=== PATIENT | male | born 1945 | race African-American/Black ===

== ENCOUNTER → 2017-08-31 | Outpatient (CLI) | payer MEDICARE, OTHER ==
[~2017-08-31] MED LIST: ASPIRIN 32325 MG/TA1 PO; CARDURA 2MG2 MG PO; CIPRO 500MG TA500 MG PO; CORDARONE200 MG/TAB PO; DILAUDID 2MG TAB2 MG PO; FLAGYL500 MG PO; HCTZ 25MG TAB25 MG PO; LEVAQUIN 5500 MG/TA1 PO; NORCO 325 MG-51 TAB PO; PERCOCET 325 MG1 TA2 PO; PLAVIX 75MG TAB75 MG PO; TOPROL XL 25MG25 MG PO; TYLENOL 500MG500 MG PO; ZOFRAN 4MG T4 MG/TAB PO; ZOFRAN INJ4 MG/2 ML PO
== END ==
LOC: COL.RAD 07:18
DX: I71.4 Abdominal aortic aneurysm, without rupture (principal); K42.9 Umbilical hernia without obstruction or gangrene
CPT/HCPCS: Q9967

== ENCOUNTER 2018-01-19 07:30 | Day surgery (SDC) | payer MEDICARE, OTHER ==
[~2018-01-19] VITALS: Ht 182.9 cm; Wt 94.0 kg
[2018-01-19] MEDS ORDERED: PACERONE200 MG PO (07:52)
[2018-01-19 07:54] VITALS: BP 121/71; PULSE 53; TEMP 98.5
[2018-01-19 10:55] VITALS: BP 133/77; PULSE 55; TEMP 98.4
[2018-01-19] MEDS ORDERED: NORCO 325 MG-51 TAB PO (11:05)
[2018-01-19 11:10] VITALS: BP 135/79; PULSE 49
[2018-01-19 11:25] VITALS: BP 140/67; PULSE 54
== END 2018-01-19 11:55 | disposition home or self-care (01) ==
LOC: SDCO 07:30
DX: C10.9 Malignant neoplasm of oropharynx, unspecified (principal); I10 Essential (primary) hypertension; E86.0 Dehydration; I48.91 Unspecified atrial fibrillation; Z86.73 Personal history of transient ischemic attack (TIA), and cerebral infarction without residual deficits; Z79.82 Long term (current) use of aspirin; Z87.891 Personal history of nicotine dependence
CPT/HCPCS: C1788; J0690; J1644; J2250; J2704; J3010; J7120

== ENCOUNTER → 2018-02-18 | Outpatient (CLI) | payer MEDICARE, OTHER ==
[~2018-02-18] MED LIST changes: +PACERONE200 MG PO
== END ==
LOC: COL.RAD 08:01
DX: I71.4 Abdominal aortic aneurysm, without rupture (principal); K43.9 Ventral hernia without obstruction or gangrene
CPT/HCPCS: Q9967

== ENCOUNTER → 2018-08-03 | Outpatient (CLI) | payer MEDICARE, OTHER | LOC: COL.RAD 08:27 | DX: I71.4 Abdominal aortic aneurysm, without rupture (principal); K42.9 Umbilical hernia without obstruction or gangrene; N40.0 Benign prostatic hyperplasia without lower urinary tract symptoms | CPT/HCPCS: Q9967 ==

== ENCOUNTER 2019-01-29 17:57 | Observation (INO) | payer MEDICARE, OTHER ==
[~2019-01-29] VITALS: Ht 182.9 cm; Wt 88.8 kg
[2019-01-29 18:43] LABS: COLLECTION METHOD CLEAN CATCH
[2019-01-29 18:46] LABS: BASO % 0.4 % (0.0-2.0); EOS # 0.1 (0.0-0.7); EOS % 0.9 % (0-4.0); GRAN # 6.5 (1.4-6.5); GRAN % 84.7 % (42.2-75.2); HEMATOCRIT 38.7 % (42.0-52.0); HEMOGLOBIN 12.5 g/dl (13.5-18.0); LYMPH # 0.7 (1.2-3.4); LYMPH % 9.2 % (20.0-51.0); MEAN CELL VOLUME 82 fl (80.0-100.0); MEAN CORPUSCULAR HEMOGLOBIN 26 pg (27.0-31.0); MEAN CORPUSCULAR HGB CONC 32 g/dl (33.0-37.0); MEAN PLATELET VOLUME 10.7 fl (7.4-10.4); MONO # 0.3 (0.1-0.6); MONO % 4.4 % (1.7-9.3); PLATELET COUNT 201 K/mm3 (130-400); RED BLOOD COUNT 4.75 M/mm3 (4.20-5.60); REDCELL DISTRIBUTION WIDTH-CV 17.2 % (11.5-14.5)
[2019-01-29 18:52] LABS: MUCOUS Present /lpf; PH 7 (5-8); SQUAMOUS EPITHELIAL 0-2 /hpf; URINE APPEARANCE Clear; URINE BACTERIA None Seen /hpf; URINE BILIRUBIN Negative (NEGATIVE); URINE BLOOD Negative (NEGATIVE); URINE COLOR Yellow; URINE GLUCOSE Negative (NEGATIVE); URINE KETONE Negative (NEGATIVE); URINE LEUKOCYTE ESTERASE Negative (NEGATIVE); URINE NITRATE Negative (NEGATIVE); URINE PROTEIN(semi-quant) Negative (NEGATIVE); URINE UROBILINOGEN Negative (NEGATIVE)
[2019-01-29 19:00] LABS: BILIRUBIN,TOTAL 0.6 mg/dL (0.0-1.0); C-REACTIVE PROTEIN 0.8 mg/dL (0.0-0.9); CALCIUM 9.1 mg/dL (8.4-10.2); CREATININE, serum 1.31 (0.66-1.25); POTASSIUM 3.6 mmol/L (3.4-5.0); TOTAL PROTEIN 7.2 gm/dL (6.4-8.2)
[2019-01-29] MEDS ORDERED: REVATIO20 MG PO (19:05)
[2019-01-29] MEDS ORDERED: PERCOCET 325 MG1 TA2 PO (19:06)
[2019-01-29 22:00] VITALS: BP 122/74; PULSE 62
[2019-01-29 22:15] VITALS: BP 142/71; PULSE 69
[2019-01-29 22:30] VITALS: BP 139/63; PULSE 68
[2019-01-29 22:45] VITALS: BP 128/74; PULSE 72; TEMP 97.9
--- NOTE | 2019-01-29 23:07 | NUR ---
PT TO ROOM 347 FROM PACU. PT HAVING MINIMAL PAIN. NO N/V. DRESSING TO ABD CD&I. SEE 5 PAGE ASSESSMENT.
[2019-01-29 23:15] VITALS: BP 134/72; PULSE 60
[2019-01-29 23:47] VITALS: BP 122/74; PULSE 64; TEMP 97.9
[2019-01-30 00:45] VITALS: BP 151/75; PULSE 61
[2019-01-30 01:38] VITALS: BP 122/72; PULSE 61
[2019-01-30 05:34] VITALS: BP 138/65; PULSE 53; TEMP 97.7
--- NOTE | 2019-01-30 06:36 | NUR ---
RESTING QUIETLY. PT TOOK 1 NORCO FOR ABDOMINAL DISCOMFORT R/T SURGERY. NO N/V.
--- NOTE | 2019-01-30 07:28 | NUR ---
REPORT RECEIVED FROM ROBERT SU. PATIENT LYING IN BED WITH NO COMPLAINTS. MIDLINE INCISION COVERED IN ABD DRESSING, NO DRAINAGE SEEN WHEN EXAMINED. PATIENT HAS NO COMPLAINTS. CARE TAKEN OVER AT THIS TIME.
[2019-01-30 09:03] VITALS: BP 126/59; PULSE 60; TEMP 98.5
--- NOTE | 2019-01-30 10:55 | NUR ---
Discharge paperwork reviewed with patient and . They verbalize understanding and plan to call office tomorrow to make follow up appointment. Patient is taken out via wheelchair by [employer].
== END 2019-01-30 11:00 | disposition home or self-care (01) ==
LOC: COL.ER 17:57 → SURG 19:25
PROVIDERS: Family Medicine; ADMIT Surgery
DX: K42.0 Umbilical hernia with obstruction, without gangrene (principal); Z85.818 Personal history of malignant neoplasm of other sites of lip, oral cavity, and pharynx; Z79.02 Long term (current) use of antithrombotics/antiplatelets; Z79.899 Other long term (current) drug therapy; Z79.82 Long term (current) use of aspirin; I10 Essential (primary) hypertension; I48.91 Unspecified atrial fibrillation; Z87.891 Personal history of nicotine dependence
CPT/HCPCS: G0378; J0330; J0690; J1100; J1170; J2405; J2704; J3010; J7030; J7120

== ENCOUNTER → 2019-03-18 | Outpatient (CLI) | payer MEDICARE, OTHER ==
[~2019-03-18] MED LIST changes: +REVATIO20 MG PO
== END ==
LOC: COL.RAD 09:40
DX: Z01.812 Encounter for preprocedural laboratory examination (principal); I71.4 Abdominal aortic aneurysm, without rupture; N40.0 Benign prostatic hyperplasia without lower urinary tract symptoms; Z98.890 Other specified postprocedural states
CPT/HCPCS: Q9967

== ENCOUNTER 2019-06-22 08:35 | Emergency (ER) | payer MEDICARE, OTHER ==
[~2019-06-22] VITALS: Ht 182.9 cm; Wt 89.1 kg
[2019-06-22 08:42] VITALS: TEMP 98.3
[2019-06-22] MEDS ORDERED: FLEXERIL 1010 MG/TAB PO (08:56)
[2019-06-22 09:55] VITALS: BP 161/82; PULSE 60
== END 2019-06-22 09:57 | disposition home or self-care (01) ==
LOC: COL.ER 08:35
DX: S60.222A Contusion of left hand, initial encounter (principal); M54.2 Cervicalgia; Z79.02 Long term (current) use of antithrombotics/antiplatelets; Z79.82 Long term (current) use of aspirin; V87.7XXA Person injured in collision between other specified motor vehicles (traffic), initial encounter

== ENCOUNTER → 2020-09-05 | Outpatient (CLI) | payer MEDICARE, OTHER ==
[~2020-09-05] MED LIST changes: +FLEXERIL 1010 MG/TAB PO
[2020-09-05 13:31] LABS: CREATININE, serum 1.33 (0.66-1.25); POTASSIUM 4.4 mmol/L (3.4-5.0)
== END ==
LOC: COL.LAB 12:52 → COL.RAD 12:52
PROVIDERS: Internal Medicine Cardiovascular Disease
DX: Z01.812 Encounter for preprocedural laboratory examination (principal); I71.4 Abdominal aortic aneurysm, without rupture
CPT/HCPCS: J1644; Q9967

== ENCOUNTER 2021-10-29 07:21 | Day surgery (SDC) | payer MEDICARE, OTHER ==
[~2021-10-29] VITALS: Ht 182.9 cm; Wt 87.5 kg
[2021-10-29 07:54] VITALS: BP 159/83; PULSE 54; TEMP 97
[2021-10-29] MEDS ORDERED: CRESTOR 10MG10 MG PO (08:30)
[2021-10-29 09:35] VITALS: BP 151/71; PULSE 54; TEMP 96.4
[2021-10-29 09:50] VITALS: BP 154/86; PULSE 57
[2021-10-29 10:05] VITALS: BP 154/83; PULSE 56
== END 2021-10-29 10:25 | disposition home or self-care (01) ==
LOC: SDCO 07:21
DX: K29.30 Chronic superficial gastritis without bleeding (principal); K57.30 Diverticulosis of large intestine without perforation or abscess without bleeding; K44.9 Diaphragmatic hernia without obstruction or gangrene; K31.89 Other diseases of stomach and duodenum; D64.9 Anemia, unspecified; N40.0 Benign prostatic hyperplasia without lower urinary tract symptoms; K64.0 First degree hemorrhoids; Z98.890 Other specified postprocedural states; Z85.818 Personal history of malignant neoplasm of other sites of lip, oral cavity, and pharynx; Z79.899 Other long term (current) drug therapy
CPT/HCPCS: J2704; J7120